=== PATIENT | female | born 1965 | race Caucasian/White ===

== ENCOUNTER 2020-03-12 06:32 | Outpatient (CLI) | payer OTHER, SELFPAY ==
[2020-03-12 13:59] LABS: #Eosinphils 0.1 10x3/uL (0.0-0.5); #Monocytes 0.7 10x3/uL (0.0-1.1); #Neutrophils 6.2 10x3/uL (1.5-8.4); %Basophils 0.3 % (0.0-2.0); %Eosinophils 1.2 % (0.0-6.0); %Lymphocytes 25.2 % (18.0-47.0); %Monocytes 7.6 % (0.0-10.0); %Neutrophils 65.3 % (40.0-75.0); Hemoglobin 14.8 g/dL (12.0-16.0); Mean Corpuscular HGB CONC 33.1 G/DL (32.0-36.0); Mean Corpuscular Hemoglobin 30.1 PG (27.0-33.0); Mean Corpuscular Volume 90.9 fl (80.0-100.0); Platelet Count 295 10x3/uL (130-400); RBC Distribution Width 12.6 % (11.5-14.5); Red Blood Cell (RBC) Count 4.92 10x6/uL (3.90-5.20); White Blood Cell (WBC) Count 9.5 10x3/uL (4.5-11.0)
[2020-03-12 14:25] LABS: Anion Gap 18 mmol/L (10-20); BUN (Urea Nitrogen) 15 mg/dL (9.8-20.1); Calc. Creatinine Clearance 0 mL/min (70-130); Carbon Dioxide 21 mmol/L (22-29); Chloride 106 mmol/L (98-107); Glucose 102 mg/dL (70-105); Potassium 4.4 mmol/L (3.5-5.1); Sodium 141 mmol/L (136-145)
[2020-03-13 07:47] LABS: SARS-CoV-2 MS2 Positive; SARS-CoV-2 N Gene Negative; SARS-CoV-2 S Gene Negative; SARS-CoV-2 by NAA Not Detected (NotDetected); SARS-CoV-2 orf1ab Negative
== END 2020-03-12 06:33 | disposition home or self-care (01) ==
LOC: LABBT 06:32
PROVIDERS: ATTEND Specialist
DX: Z01.818 Encounter for other preprocedural examination (principal); Z01.812 Encounter for preprocedural laboratory examination; K43.2 Incisional hernia without obstruction or gangrene; E66.9 Obesity, unspecified; Z72.0 Tobacco use; J44.9 Chronic obstructive pulmonary disease, unspecified; Z20.828 Contact with and (suspected) exposure to other viral communicable diseases
CPT/HCPCS: 80048; 85025; 87635; 93005; 93010; U0003

== ENCOUNTER 2020-03-15 05:46 | Day surgery (SDC) | payer OTHER, SELFPAY ==
[2020-03-14 09:48] VITALS: BMI 32.8
--- NOTE | 2020-03-14 10:17 | HP ---
HISTORY OF PRESENT ILLNESS: 54-year-old female who has had incisional hernia in the medial aspect of her right subcostal open cholecystectomy scar for several years. Financial constraints have prevented evaluation. She complains of pain when coughing and lifting and during the day preventing her from working. She is 54 years old. Never had a colonoscopy. Describes constipation and loose stools and occasional blood in her stool. Pain is exacerbated with coughing. She is a smoker, which exacerbates her coughing. The patient has had a history of hysterectomy for cervical cancer, did not require radiation. She smokes 3 to 4 cigarettes a day. She would like to quit. My recommendation would be that she have a colonoscopy, both screening for age over 50 and symptomatic because of alternating constipation and diarrhea and incontinence and blood in her stool. Would recommend laparoscopic mesh repair of incisional hernia as an outpatient once approved by [facility]. MEDICATIONS: None routinely. PAST MEDICAL HISTORY: Allergies, asthma, probably some degree of COPD. ALLERGIES: PENICILLIN, CLINDAMYCIN. PAST SURGICAL HISTORY: Cholecystectomy, converted to open cholecystectomy, right subcostal scar; history of hysterectomy for cervical cancer. HOSPITALIZATIONS: None. FAMILY HISTORY: Father . Mother . No medical problems noted. SOCIAL HISTORY: Alcohol, rarely. Tobacco, less than a half pack a day. PHYSICAL EXAMINATION: VITAL SIGNS: Weight 201 pounds, weight 67 inches. Respirations 31, blood pressure 152/76, temperature 97 degrees. HEAD, EARS, EYES, NOSE, AND THROAT: Unremarkable. LUNGS: Clear to auscultation. CARDIAC: Regular rate and rhythm without murmur or gallop. ABDOMEN: Soft, obese, no tenderness. Right subcostal scar with incisional hernia in medial aspect near the midline, reducible, 3 to 4 cm defect, although poorly defined due to her obesity, incomplete reduction of her hernia. Midline scar from below the umbilicus to pubis, well healed. EXTREMITIES: No ankle edema. ASSESSMENT/PLAN: 1. Incisional hernia without obstruction or gangrene. This is causing her pain. Would recommend laparoscopic mesh repair as outpatient. She understands risks and benefits, consents. 2. Obesity. 3. Tobacco abuse. Recommend cessation perioperatively and lifelong cessation. 4. Chronic obstructive pulmonary disease by history. 5. Needs screening colonoscopy. Also needs diagnostic colonoscopy due to symptoms of incontinence, constipation, and occasional loose stools and history of blood in her stool. Recommend colonoscopy prior to hernia repair. She understands risks and benefits, consents. Job ID: [id number]
[2020-03-15] MEDS ORDERED: Gabapentin 300 MG CAP ONE (06:15)
[2020-03-15] MEDS ORDERED: Ketorolac Tromethamine 30 MG/ML VIAL ONE (06:15)
[2020-03-15] MEDS ORDERED: Acetaminophen 500 MG TAB ONE (06:15)
[2020-03-15] MEDS ORDERED: Levofloxacin 500 mg/D5W 100 ml Premix Bag ONE (06:15)
[2020-03-15] MEDS ORDERED: Bupivacaine 0.25% HCL 30 ML VIAL ONE (06:40)
[2020-03-15] MEDS ORDERED: Lidocaine 1% w/Epinephrine 1:100K 20 ML VIAL ONE (06:40)
[2020-03-15] MEDS ORDERED: SUGAMMADEX SODIUM 200 MG/2 ML VIAL ONE (07:05)
[2020-03-15] MEDS ORDERED: Fentanyl 250 MCG/5 ML VIAL ONE (07:05)
[2020-03-15] MEDS ORDERED: Phenylephrine 10 MG/ML VIAL ONE (08:35)
[2020-03-15] MEDS ORDERED: Albumin 5% 500 ML ONE (08:40)
[2020-03-15] MEDS ORDERED: Albuterol Sulfate HFA (OR ONLY) ONE (10:08)
[2020-03-15] MEDS ORDERED: PHENYLEPHRINE-NS 100 MCG/ML 10 ML SYRINGE ONE (10:08)
[2020-03-15] MEDS ORDERED: Lidocaine 1% PF 5 ML VIAL ONE (10:08)
[2020-03-15] MEDS ORDERED: Dexamethasone 20 MG/5 ML VIAL ONE (10:08)
[2020-03-15] MEDS ORDERED: Rocuronium Bromide 10 MG/ML (10ML VIAL) ONE (10:08)
[2020-03-15] MEDS ORDERED: Glycopyrrolate 0.2 MG/ML 5 ML SYRINGE ONE (10:08)
[2020-03-15] MEDS ORDERED: Ondansetron PF 4 MG/2 ML Vial ONE (10:08)
[2020-03-15] MEDS ORDERED: PROPOFOL 200 MG/20 ML VIAL ONE (10:08)
[2020-03-15] MEDS ORDERED: ePHEDrine 50 MG/ML VIAL ONE (10:08)
[2020-03-15] MEDS ORDERED: Fentanyl 100 MCG/2 ML VIAL ONE ×2 (10:31→11:49)
--- NOTE | 2020-03-15 11:00 | OP ---
DATE OF PROCEDURE: 03/15/2020 PREOPERATIVE DIAGNOSES: Incisional hernia, medial incision from open cholecystectomy right subcostal scar, and history of tobacco abuse. POSTOPERATIVE DIAGNOSES: Incisional hernia, medial incision from open cholecystectomy right subcostal scar, and history of tobacco abuse. PROCEDURES PERFORMED: Robot/laparoscopic mesh repair incisional hernia, mesh reinforcement of primary fascial closure, and lysis of adhesions to enable repair. ANESTHESIA: General, local 0.5% Marcaine 30 mL mixed with 1% Xylocaine with epinephrine 20 mL, total volume used. Note, extra 5 mm port placed for adhesiolysis. DESCRIPTION OF PROCEDURE: The patient was taken to the operating room, where under general anesthesia without a French. Abdomen was prepared with ChloraPrep and draped in routine fashion. The patient had an incisional hernia upper midline medial to her right subcostal open gallbladder scar. Lower abdominal approach used with left lower quadrant and right lower quadrant, infraumbilical incision was made. An 8 mm port was placed laterally and then towards the midline, an 11 mm balloon port placed. There were adhesions requiring placement of a 5 mm port. Adhesiolysis carried out to clear the way to complete this laparoscopically/robotically. Once this was accomplished, completion adhesiolysis taking down the omentum from the abdominal wall identifying the fascial defect, which was about 6.5 cm in diameter. Pneumoperitoneum reduced to 9 mmHg and 11 cm mesh placed and sutures placed in the primary fascial defect closed with incorporation of the hernia sac into the closure with continuous suture #1 STRATAFIX. Once this was accomplished, the mesh was secured with another throw with a #1 STRATAFIX to hold it in place in the midline. A 2-0 V-Loc suture used to secure the mesh to the abdominal wall circumferentially. Once this was accomplished, all needles were removed. Good hemostasis noted. Good hernia repair appreciated. Job ID: [id number]
[2020-03-15] MEDS ORDERED: Ondansetron ODT 4 MG TAB ONE (13:15)
[2020-03-15] MEDS ORDERED: traMADol HCl 50 MG TAB ONE ×2 (14:08→15:12)
== END 2020-03-15 15:25 | disposition home or self-care (01) ==
LOC: SDC 05:46
PROVIDERS: ATTEND Specialist
PROC: 0WUF4JZ Supplement Abdominal Wall with Synthetic Substitute, Percutaneous Endoscopic Approach (ICD-10-PCS; principal; 2020-03-15)
DX: K43.2 Incisional hernia without obstruction or gangrene (principal); F17.210 Nicotine dependence, cigarettes, uncomplicated; J44.9 Chronic obstructive pulmonary disease, unspecified; F32.9 Major depressive disorder, single episode, unspecified; I73.00 Raynaud's syndrome without gangrene; E66.9 Obesity, unspecified; Z68.32 Body mass index [BMI] 32.0-32.9, adult; Z79.899 Other long term (current) drug therapy; Z88.0 Allergy status to penicillin; Z88.1 Allergy status to other antibiotic agents
CPT/HCPCS: C1781; J1100; J1885; J1956; J2370; J2405; J2704; J3010; J3490; J7620; P9045; Q0162; S0020